=== PATIENT | female | born 1960 | race Caucasian/White ===

== ENCOUNTER 2018-02-22 13:38 | Emergency (ER) | payer MEDICAID ==
[~2018-02-22] VITALS: Ht 170.2 cm; Wt 134.0 kg
[2018-02-22 15:06] VITALS: BP 128/71
== END 2018-02-22 15:08 | disposition home or self-care (01) ==
LOC: ED 15:06
DX: E11.65 Type 2 diabetes mellitus with hyperglycemia (principal); I10 Essential (primary) hypertension; Z79.4 Long term (current) use of insulin
CPT/HCPCS: 93005; 99283

== ENCOUNTER 2021-08-09 15:29 | Emergency (ER) | payer MEDICAID, OTHER ==
[~2021-08-09] VITALS: Ht 167.6 cm; Wt 133.5 kg
--- NOTE | 2021-08-09 18:43 | NUR ---
pt walked back to room at this time
[2021-08-09] MEDS ORDERED: ACETAMINOPHEN 500 MG TABLET ONE (19:10)
[2021-08-09] MEDS ORDERED: BACITRACIN ZINC OINT 500U/GM, 0.9 GM ONE (19:13)
[2021-08-09] MEDS ORDERED: ACETAMINOPHEN 500 MG TABLET PO ONE (19:30)
[2021-08-09] MEDS ORDERED: NEOSPORIN OINT. PKT 1 PACKET ONE (19:31)
[2021-08-09 20:10] VITALS: BP 138/60
== END 2021-08-09 20:12 | disposition home or self-care (01) ==
LOC: ED 19:49
DX: S22.32XA Fracture of one rib, left side, initial encounter for closed fracture (principal); S50.02XA Contusion of left elbow, initial encounter; S80.02XA Contusion of left knee, initial encounter; M25.462 Effusion, left knee; W01.0XXA Fall on same level from slipping, tripping and stumbling without subsequent striking against object, initial encounter; Y93.89 Activity, other specified; Y92.89 Other specified places as the place of occurrence of the external cause; Y99.8 Other external cause status; E11.9 Type 2 diabetes mellitus without complications; I10 Essential (primary) hypertension
CPT/HCPCS: 99284